=== PATIENT | female | born 2005 ===

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

== ENCOUNTER 2025-03-08 19:18 | Emergency (ER) | payer OTHER, SELFPAY ==
--- NOTE | 2025-03-08 19:21 | ED.URI ---
HPI - URI/Sore Throat General Chief Complaint: Upper Respiratory Infection Stated Complaint: sore throat Time Seen by Provider: 03/08/25 19:20 Source: patient Mode of arrival: ambulatory Limitations: no limitations History of Present Illness HPI Narrative: Sapna is a 19-year-old female patient presenting to the clinic today with complaints of a sore throat, runny nose, and slight cough x3 days. She reports no known fevers, chills, body aches. Denies any chest pain or shortness of breath. No known sick contacts. Related Data Home Medications Medication Instructions Recorded Confirmed Last Taken Type montelukast 5 mg chewable tablet 5 mg HS 05/09/20 12/15/23 Unknown History Allergies Allergy/AdvReac Type Severity Reaction Status Date / Time No Known Allergies Allergy Verified 03/08/25 19:31 Review of Systems Review of Systems: Pertinent positives per HPI. Patient denies any fever, chills, rash, headache, visual changes, dizziness, shortness of breath, chest pain, palpitations, nausea, vomiting, diarrhea, constipation, abdominal pain, or any urinary issues. PMFSH Past Medical History Medical History Seasonal allergies UTI (urinary tract infection) Alpha-thalassemia Social History Social History Smoking status: Never smoker Alcohol intake: never Living arrangements: with family Occupation/Education: student Gender identity (if verbalized by the patient): Female Comments At the time of my signature, I reviewed and agree with the nursing past medical, surgical, social, and family history. There is no relevant family history pertinent to the patient complaint. Exam Narrative: General: Well-developed, well nourished, in no apparent distress Head: Normocephalic, atraumatic Eyes: Pupils equally round and reactive to light bilaterally, EOM intact, sclera and conjunctive clear, no discharge, lids normal Ears: TMs intact and clear, ear canals clear, no drainage, grossly hearing normal. Nose: Nares patent, clear nasal discharge, no inflammation, no sinus tenderness. Mouth: Oral pharynx red with bilateral tonsillar enlargement with exudate tonsils without lesions or masses, good dentition, MMM. Neck: Supple, trachea midline, enlargement of anterior cervical nodes, no thyroid masses or goiter palpable. Cardio: Regular rate and rhythm, s1 and s2 normal, no murmur appreciated. Resp: Clear to auscultation bilaterally, no rhonchi, rales, wheezing or rubs Course Course Emergency Course: Portions of this record may have been created with voice recognition software. Level of Care: Express Care Visit Vital Signs Vital signs: Vital Signs Temperature 35.8 C L 03/08/25 19:30 Pulse Rate 114 H 03/08/25 19:30 Respiratory Rate 18 03/08/25 19:30 Blood Pressure 107/62 03/08/25 19:30 Pulse Oximetry 100 03/08/25 19:30 Oxygen Delivery Room Air 03/08/25 19:30 Temperature 35.8 C L 03/08/25 19:30 Pulse Rate 114 H 03/08/25 19:30 Respiratory Rate 18 03/08/25 19:30 Blood Pressure 107/62 03/08/25 19:30 Pulse Oximetry 100 03/08/25 19:30 Oxygen Delivery Room Air 03/08/25 19:30 Vital signs reviewed MDM - URI/Sore Throat MDM Narrative Medical decision making narrative: At the time of visit patient is resting comfortably on the exam table. Patient appears to be nontoxic. Labs: Strep test was performed and negative in the clinic today. We will send strep for culture Plan: I suspect patient has URI/pharyngitis. We will send strep for culture. Supportive measures were discussed with the patient and they voiced understanding discharge instructions and agrees to treatment plan. Return precautions reviewed Differential Diagnosis Differential diagnosis: Likely upper respiratory infection, otitis media, sinusitis, viral infection, bronchitis, influenza and pharyngitis Discharge Plan Discharge Clinical Impression: Upper respiratory infection Qualifiers: URI type: unspecified URI Qualified Code(s): J06.9 - Acute upper respiratory infection, unspecified Pharyngitis Qualifiers: Pharyngitis/tonsillitis etiology: unspecified etiology Qualified Code(s): J02.9 - Acute pharyngitis, unspecified Patient Disposition: Home Condition: Stable Instructions: Antibiotic Form, Pharyngitis (ED), Upper Respiratory Infection (ED) Additional Instructions: Strep test was negative in the clinic today. We will send strep for culture if this comes back positive we will contact him place you on antibiotics at that time. Increase fluids and stay well hydrated Tylenol/motrin for pain/fever Flonase and OTC antihistamines as directed Vicks vapor rub to open sinuses Sinus rinses for congestion Cepacol spray, cough drops, throat lozenges, warm tea with honey/lemon, gargle salt water to soothe throat BRAT diet for diarrhea Clear liquids x 24 hours then advance as tolerated for nausea/vomiting Go to the ED if you develop a worsening in your condition- high fever not controlled by Tylenol or Motrin, dehydration, weakness, lethargy, shortness of breath, or chest pain. Follow up with your PCP in 3-5 days if symptoms persist. Patient Language: South Korean Prescriptions: No Action montelukast 5 mg tablet,chewable 5 mg HS Follow-up/Referrals: UNKNOWN,DOCTOR [Non-Staff] - Time of Disposition: 19:37 Quality NIHSS Nursing Documentation ED NIHSS nursing documentation: reviewed/agree
--- OUTSIDE RECORDS SUMMARY | 2025-03-08 19:21 | XMS_ITS | Clinical Summary ---
Author Organization [facility] Address [address] [place] [address] Care Team Providers Care Fire Truck Driver Name Role Phone Светлана Bradshaw MD Primary Care Provider [phone] Source Comments [facility],non-owned Affiliates and Associated Physician Practices is amultiple site organization consisting of ambulatory clinics and hospital sitesin [place], [place], [place] and [place]. This disclosure is being madepursuant to the Care Everywhere program and may not contain all information available regarding this patient. Last updated 18.Boomi Allergies No known active allergies Medications * Be aware that medications may not be up to date on this document. Alwaysverify current medications with the patient. montelukast (SINGULAIR) 5 MG chew tabletIndication s:Mild intermittent asthma without complication (HCC) CHEW AND SWALLOW 1 TABLET BY MOUTH ONCE DAILY IN THE EVENING 90 tablet 2 Active Additional Information Patient not taking.Reported on 10/30/2023 Active Problems Problem Noted Date Diagnosed Date Anemia, alpha thalassemia 10/13/2013 Eczema 09/05/2013 Asthma 09/05/2013 Overview (08/29/2015): Immunizations Immunization Administration Dates Next Due DTAP/HEP B/IPV 04/11/2006,02/05/2006,2005 DTaP VACCINE IM (6wk-6yrs) 06/08/2011,01/04/2007 FLU VACCINE TRI IIV3 SPLIT P F IM (FLUVIRIN) 10/13/2013 HEP A PEDS 2 DOSE 11/15/2007,10/19/2006 HIB-PRP-T 4 DOSE 01/04/2007,02/05/2006, 6 INFLUENZA VACCINE 08/02/2010, 9,08/07/2008,08/27,10/19/2006,09/06/2006 INFLUENZA VACCINE, QUADR. (F LUZONE; FLULAVAL; FLUARIX; AFLURIA QUADRIVALENT; 6MO+), 0.5 ML (IIV4) 11/18/2019,08/22/2018,09/11/2017,08/28,10/18/2015,08/14/2014 MEASLES 08/02/2010 MENINGOCOCCAL ACWY (MCV4P) VAC IM 05/12/2022, MMR 06/08/2011 MMR/VARICELLA 10/19/2006 Meningococcal B Recombinant 2 Dose, IM 4 PNEUMOCOCCAL PCV7 CONJ, PEDS 10/19/2006, 04/11/2006,02/05/2006,12/11 POLIO IPV 06/08/2011 TDAP (7yrs+) 01/15/2017 VARICELLA 06/08/2011 Family History Medical History Relation Name Comments Asthma Mother Rashes/Skin Problems Mother Thyroid Disease Mother Diabetes Paternal Grandfather Relation Name Status Comments Father Alive Mother Alive Paternal Grandfather Paternal Grandmother Alive Sister Alive Social History Tobacco Use Types Packs/Day Years Used Date Smoking Tobacco: Never Smokeless Tobacco: Never Alcohol Use Standard Drinks/Week Comments No 0 (1 standard drink = 0.6 oz pur e alcohol) PHQ-2 Answer Date Recorded PHQ2 TOTAL SCORE 0 05/12/2022 Comments No Sex and Gender Information Value Date Recorded Sex Assigned at Not on file Legal Sex 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 Gender Identity Not on file Sexual Orientation Not on file Last Filed Vital Signs Vital Sign Reading Time Taken Comments Blood Pressure 121/64 05/12/2022 1:05 PM CDT Pulse 97 05/12/2022 1:05 PM CDT Temperature 36.5 C (97.7 F) 10/30/2023 8:40 AM ELECTRIC MOTOR AND GENERATOR ASSEMBLER Respiratory Rate 18 05/27/2021 10:55 AM CDT Oxygen Saturation 99% 05/27/2021 10:55 AM CDT Inhaled Oxygen Concentration - - Weight 67.1 kg (148 lb) 10/30/2023 8:40 AM ELECTRIC MOTOR AND GENERATOR ASSEMBLER Height 166.4 cm (5' 5.5 ) 05/12/2022 1:05 PM CDT Body Mass Index - - Plan of Treatment Health Maintenance Due Date Last Done Comments PNEUMOCOCCAL VACCINE (1 of 1 - PPSV23) 2011 10/19/2006, 04/11/2006, 02/05/2006, Additional history exists HIV SCREENING 2020 HPV VACCINE (1 - 3-dose series) 2020 CHLAMYDIA/GONORRHEA SCREENING 2021 HEPATITIS C SCREENING 10/01/2023 COVID-19 VACCINE (5 - 2023-2 5 season) 2024 06/04/2023, 11/26/2021, 05/22/2021, Additional history exists DEPRESSION SCREENING 10/22/2024 05/12/2022 MENINGOCOCCAL (Group B) VACC INE SHARED DECISION-MAKING (2 of 2 - Bexsero SCDM 2-dose series) 11/23/2024 05/23/2024 INFLUENZA VACCINE (Season Ended) 2025 11/18/2019, 08/22/2018, 09/11/2017, Additional history exists DTAP/TDAP/TD VACCINES (7 - T d or Tdap) 01/15/2027 01/15/2017, 06/08/2011, 01/04/2007, Additional history exists ZOSTER VACCINE (1 of 2) 2055 HEPATITIS B VACCINE Completed 04/11/2006, 02/05/2006, 2005 HIB VACCINE Completed 01/04/2007, 01/20, 2005 MENINGOCOCCAL GROUPS A/C/Y/W VACCINE Completed 05/12/2022, 01/15/2017 Goals Goal Patient Goal Type Associated Problems Recent Progress Patient-Stated? Author [facility] Lifestyle: Use safety retraint in car Lifestyle On track( 022 1:05 PM CDT) Paula Herbert, TEO Insurance [facility] Care Teams Fire Truck Driver Relationship Specialty Start Date End Date Светлана Bradshaw MD PCP - General Pediatrics 09/05/13
[2025-03-08 19:30] VITALS: BP 107/62; PULSE 114; RESP 18; TEMP 35.8; O2SAT 100
[2025-03-08 19:37] LABS: EDSTREPNEGPOS1 Negative (Negative)
[2025-03-08 20:11] LABS: EDCOVIDSCREEN Negative (Negative); EDINFLUASCREEN Negative (Negative); EDINFLUBSCREEN Negative (Negative)
== END 2025-03-08 20:10 | disposition home or self-care (01) ==
PROVIDERS: Emergency Provider Nurse Practitioner Family; PCP Pediatrics
DX: J06.9 Acute upper respiratory infection, unspecified (principal); J02.9 Acute pharyngitis, unspecified; Z20.822 Contact with and (suspected) exposure to COVID-19; D56.0 Alpha thalassemia
CPT/HCPCS: 87081; 87426; 87804; 87880; 99213; G0463